=== PATIENT | female | born 2000 | race Caucasian/White ===

== ENCOUNTER 2018-08-26 19:40 | Emergency (ER) | payer OTHER ==
[~2018-08-26] VITALS: Ht 160 cm; Wt 52.6 kg
[2018-08-26 20:50] VITALS: BP_SYST 122
[2018-08-26] MEDS ORDERED: LORazepam 1 MG TABLET PO ONE (21:15)
[2018-08-26 21:25] VITALS: BP_SYST 120
== END 2018-08-26 21:25 | disposition home or self-care (01) ==
LOC: SED 19:40
DX: F41.9 Anxiety disorder, unspecified (principal); R51 Headache
CPT/HCPCS: 99283